=== PATIENT | female | born 2000 | race Caucasian/White ===

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

== ENCOUNTER 2021-12-22 11:23 | Emergency (ER) | payer OTHER ==
[~2021-12-22] VITALS: Ht 157.5 cm; Wt 81.2 kg
[2021-12-22 12:33] LABS: BASO % 0.5 % (0.0-1.0); EOS # 0.2 10^3/uL (0.0-0.5); EOS % 4.4 % (0.0-3.0); HEMATOCRIT 39.5 % (36.0-47.0); HEMOGLOBIN 13.5 g/dl (12.0-15.5); LYMPH # 1.5 10^3/uL (1.5-5.0); LYMPH % 35.3 % (24.0-44.0); MEAN CORPUSCULAR HEMOGLOBIN 29.7 pg (27.0-33.0); MEAN CORPUSCULAR HGB CONC 34.2 g/dl (32.0-36.5); MONO # 0.4 10^3/uL (0.0-0.8); MONO % 9.7 % (2.0-8.0); NEUTROPHILS # 2.1 10^3/uL (1.5-8.5); NEUTROPHILS % 49.9 % (36.0-66.0); PLATELET COUNT, AUTOMATED 315 10^3/uL (150-450); RED BLOOD COUNT 4.54 10^6/uL (4.00-5.40); WHITE BLOOD COUNT 4.1 10^3/uL (4.0-10.0)
[2021-12-22] MEDS ORDERED: ONDANSETRON 4MG ORAL DISINTEGRATING TAB PO ONE (12:35)
[2021-12-22] MEDS ORDERED: KETOROLAC 60MG 2ML VIAL IM ONE (12:35)
[2021-12-22 13:00] LABS: HCG, SERUM QUALITATIVE NEGATIVE (NEGATIVE)
[2021-12-22 14:47] VITALS: BP 129/76
== END 2021-12-22 14:49 | disposition home or self-care (01) ==
LOC: M ED 11:23
DX: N92.0 Excessive and frequent menstruation with regular cycle (principal); R11.0 Nausea; Z91.030 Bee allergy status
CPT/HCPCS: 36415; 76830; 76856; 84703; 85025; 86850; 86900; 86901; 93976; 96372; 99284; J1885

== ENCOUNTER → 2024-04-02 | Outpatient (REF) | LOC: M EMP 11:02 | PROVIDERS: ATTEND Family Medicine | DX: Z01.89 Encounter for other specified special examinations (principal) ==